=== PATIENT | female | born 1930 | race Caucasian/White ===

== ENCOUNTER 2017-05-03 19:09 | Emergency (ER) | payer OTHER, BC ==
[2017-05-03 19:16] VITALS: BP 143/84; PULSE 85; TEMP 98.7; BMI 26.4
--- NOTE | 2017-05-03 19:48 | PDOC ---
History of Present Illness - General History Source: Patient Exam Limitations: No Limitations - History of Present Illness Initial Comments: 05/03/17 20:17 The patient is a 86 year old female, with no significant past medical history, who presents to the emergency department with, laceration on her head and bilateral hip pain s/p mechanical fall earlier this afternoon. The patient reports she was raking leaves in her yard when she fell back and forcefully fell back and hit her head on the cement. She needed reports feeling weak and needed help up but, can currently ambulate on her own. She reports secondary to her fall she hurt her hip. She reports taking two aspirins for the pain. She denies loss of consciousness prior to her fall. She denies recent fevers, chills, headache or dizziness. She denies recent nausea, vomit, diarrhea or constipation. She denies recent dysuria, frequency, urgency or hematuria. She denies recent chest pain or shortness of breath. Allergies: NKA Past surgical history: None reported. Social history: Nonsmoker. Denies EtOH use and recreational drug use. <Vicente Estrada - Last Filed: 05/03/17 20:57> <Sam Little - Last Filed: 05/03/17 21:15> - General Chief Complaint: Injury Stated Complaint: S/P FALL, HIT HEAD Time Seen by Provider: 05/03/17 19:46 Past History - Past Medical History COPD: No - Suicide/Smoking/Psychosocial Hx Smoking History: Unknown if ever smoked Have you smoked in the past 12 months: No Number of Cigarettes Smoked Daily: 0 Information on smoking cessation initiated: No Hx Alcohol Use: No Drug/Substance Use Hx: No Substance Use Type: None <Sam Little - Last Filed: 05/03/17 21:15> Review of Systems - Review of Systems Able to Perform ROS?: Yes Comments:: 05/03/17 20:17 GENERAL/CONSTITUTIONAL: No fever or chills. No weakness. HEAD, EYES, EARS, NOSE AND THROAT: +Laceration on the back of her head. No change in vision. No ear pain or discharge. No sore throat. CARDIOVASCULAR: No chest pain or shortness of breath. RESPIRATORY: No cough, wheezing, or hemoptysis. GASTROINTESTINAL: No nausea, vomiting, diarrhea or constipation. GENITOURINARY: No dysuria, frequency, or change in urination. MUSCULOSKELETAL: +Bilateral hip pain. No joint swelling or pain. No neck or back pain. SKIN: No rash NEUROLOGIC: No headache, vertigo, loss of consciousness, or change in strength/ sensation. ENDOCRINE: No increased thirst. No abnormal weight change. HEMATOLOGIC/LYMPHATIC: No anemia, easy bleeding, or history of blood clots. ALLERGIC/IMMUNOLOGIC: No hives or skin allergy. All Other Systems: Reviewed and Negative <Vicente Estrada - Last Filed: 05/03/17 20:57> *Physical Exam - Vital Signs Last Vital Signs Temp Pulse Resp BP Pulse Ox 98.7 F 85 14 143/84 98 05/03/17 19:13 05/03/17 19:13 05/03/17 19:13 05/03/17 19:13 05/03/17 19:13 - Physical Exam Comments: 05/03/17 20:19 GENERAL: Awake, alert, and fully oriented, in no acute distress HEAD: +Two lacerations on the left occipital region 1 cm and 1/2cm respectively. EYES: PERRLA, EOMI, sclera anicteric, conjunctiva clear ENT: Auricles normal inspection, hearing grossly normal, nares patent, oropharynx clear without exudates. Moist mucosa NECK: Normal ROM, supple, no lymphadenopathy, JVD, or masses LUNGS: Breath sounds equal, clear to auscultation bilaterally. No wheezes, and no crackles HEART: Regular rate and rhythm, normal S1 and S2, no murmurs, rubs or gallops ABDOMEN: Soft, nontender, normoactive bowel sounds. No guarding, no rebound. No masses EXTREMITIES: +Bilateral hip pain. Normal range of motion, no edema. No clubbing or cyanosis. No cords or erythema. NEUROLOGICAL: Cranial nerves II through XII grossly intact. Normal speech, normal gait SKIN: Warm, Dry, normal turgor, no rashes or lesions noted. <Vicente Estrada - Last Filed: 05/03/17 20:57> - Vital Signs Last Vital Signs Temp Pulse Resp BP Pulse Ox 98.7 F 85 14 143/84 98 05/03/17 19:13 05/03/17 19:13 05/03/17 19:13 05/03/17 19:13 05/03/17 19:13 <Sam Little - Last Filed: 05/03/17 21:15> Medical Decision Making - Medical Decision Making 05/03/17 20:59 1% plain lidocaine was administered to the lacerations. The 1cm laceration received 2 devante and the 1/2cm laceration received 1 staple. <Vicente Estrada - Last Filed: 05/03/17 20:57> *DC/Admit/Observation/Transfer - Attestations Scribe Attestion: 05/03/17 20:19 Documentation prepared by Vicente Estrada, acting as medical reception specialist for Sam Little MD. <Vicente Estrada - Last Filed: 05/03/17 20:57> - Discharge Dispostion Admit: No - Attestations Physician Attestion: 05/03/17 19:46 I, Dr. Sam Little, attest that this document has been prepared under my direction and personally reviewed by me in its entirety. I further attest, that it accurately reflects all work, treatment, procedures and medical decision -making performed by me. <Sam Little - Last Filed: 05/03/17 21:15> Diagnosis at time of Disposition: Head injury Qualifiers: Encounter type: initial encounter Qualified Code(s): S09.90XA - Unspecified injury of head, initial encounter Occipital scalp laceration Qualifiers: Encounter type: initial encounter Qualified Code(s): S01.01XA - Laceration without foreign body of scalp, initial encounter - Discharge Dispostion Disposition: HOME Condition at time of disposition: Good - Patient Instructions Printed Discharge Instructions: DI for Closed Head Injury Additional Instructions: Sorry this happened to Ms Albarran today. All of the x-rays and CT scans are good. She will be sore for a few days. Tylenol and an Ice Pack would be best- Follow up with her doctor in a few days. [place] can come out in 7-10 days Return to us if any problems. Best- Dr. Sam Little
[2017-05-03] MEDS ORDERED: LIDOCAINE HCL 2% (20ML MULTI-DOSE VIAL) NR ONE (20:14)
== END 2017-05-03 21:19 | disposition home or self-care (01) ==
LOC: FER 19:09
PROC: 0HQ0XZZ Repair Scalp Skin, External Approach (ICD-10-PCS; principal; 2017-05-03)
DX: S01.01XA Laceration without foreign body of scalp, initial encounter (principal); W18.39XA Other fall on same level, initial encounter; Y93.H1 Activity, digging, shoveling and raking; Y92.007 Garden or yard of unspecified non-institutional (private) residence as the place of occurrence of the external cause
CPT/HCPCS: 70450-TC; 70486-TC; 72050-TC; 72170-TC; 73502-TC-LT; 73502-TC-RT; 99282-25